=== PATIENT | male | born 1970 | race Caucasian/White ===

== ENCOUNTER 2017-10-05 14:11 | Inpatient (IN) | payer BC ==
[~2017-10-05] VITALS: Ht 182.9 cm; Wt 64.0 kg
[2017-10-05] MEDS: ALBUTEROL SULFATE 2.5 MG/3 ML NEBU NEB ONE ×4 (14:48→17:23)
--- NOTE | 2017-10-05 14:50 | NUR ---
PT IS IN ROOM #2B. DR DILLON EVALUATED THE PT.
[2017-10-05] MEDS ORDERED: ALBUTEROL SULFATE 2.5 MG/3 ML NEBU ONE ×2 (14:59→17:20)
[2017-10-05 15:12] LABS: BASOPHILS % (AUTO) 0.2 % (0.0-2.0); EOSINOPHILS % (AUTO) 0.1 % (0.0-7.0); HEMATOCRIT 43.4 % (36.7-47.1); HEMOGLOBIN 14.5 g/dL (12.5-16.3); LYMPHOCYTES # (AUTO) 0.6 K/uL (20.0-40.0); LYMPHOCYTES % (AUTO) 16.5 % (20.5-51.5); MEAN CORPUSCULAR HEMOGLOBIN 33.2 uug (23.8-33.4); MEAN CORPUSCULAR HGB CONC 33 g/dL (32.5-36.3); MEAN CORPUSCULAR VOLUME 99.4 fL (73.0-96.2); MONOCYTES # (AUTO) 0.2 K/uL (2.0-10.0); MONOCYTES % (AUTO) 4.4 % (0.0-11.0); NEUTROPHILS % (AUTO) 78.8 % (38.5-71.5); PLATELET COUNT (AUTO) 134 K/uL (152-348); RED BLOOD CELL COUNT(AUTO) 4.37 MIL/uL (4.06-5.63); WHITE BLOOD COUNT (AUTO) 3.8 K/uL (3.6-10.2)
[2017-10-05 15:14] LABS: CREATININE 3.2 mg/dL (0.6-1.3); POTASSIUM 4.2 mmol/L (3.5-5.1)
[2017-10-05 15:26] LABS: BILIRUBIN,DIRECT 0.1 mg/dL (0.0-0.2); BILIRUBIN,TOTAL 0.3 mg/dL (0.2-1.0); TOTAL PROTEIN, SERUM 6.5 g/dL (6.4-8.2)
[2017-10-05] MEDS ORDERED: IV NORMAL SALINE 1000 ML BAG IV ONE (15:45)
[2017-10-05] MEDS ORDERED: LEVOFLOXACIN 500 MG/D5W 100ML PIGGYBACK IV ONE (15:45)
[2017-10-05] MEDS ORDERED: ONDANSETRON 4 MG/2 ML VIAL IV ONE (15:45)
[2017-10-05] MEDS ORDERED: PIPERACILLIN SODIUM/TAZOBACTAM 2.25 G in IV DEXTROSE 5% 50 ML IV ONE (15:45)
[2017-10-05] MEDS ORDERED: MORPHINE SULFATE 2 MG/1 ML DISP.SYRIN IV ONE (15:45)
--- NOTE | 2017-10-05 16:03 | NUR ---
C ODE SEPSIS WAS CALLED BY DR DILLON. CODE SEPSIS PROTOCOL STARTED.
[2017-10-05 16:09] LABS: BAND % (MANUAL) 29 % (0-10); LYMPHOCYTES % (MANUAL) 19 % (20-40); MONOCYTES % (MANUAL) 6 % (2-10); NEUTROPHILS % (MANUAL) 46 % (42-75)
[2017-10-05] MEDS ORDERED: PIPERACILLIN/TAZOBACTAM/D5W 50 ML ONE (16:29)
[2017-10-05] MEDS ORDERED: LEVOFLOXACIN 500 MG/D5W 100 ML ONE (16:30)
[2017-10-05] MEDS ORDERED: ONDANSETRON 4 MG/2 ML VIAL ONE (16:31)
[2017-10-05] MEDS ORDERED: MORPHINE SULFATE 4 MG/1 ML DISP.SYRIN ONE (16:31)
[2017-10-05] MEDS ORDERED: VANCOMYCIN IV 1,000 MG in IV DEXTROSE 5% 250 ML IV ONE (16:45)
[2017-10-05] MEDS ORDERED: LORAZEPAM 2 MG/1 ML VIAL IV ONE ×2 (17:45)
[2017-10-05] MEDS ORDERED: LORAZEPAM 2 MG/1 ML VIAL ONE ×2 (18:10→23:35)
[2017-10-05] MEDS ORDERED: VANCOMYCIN IV 200 ML ONE (18:16)
--- NOTE | 2017-10-05 19:14 | NUR ---
REPORT GIVEN TO CONTRACTING MANAGER RN. PT IS RESTING IN BED COMFORTABLY. PT'S AT THE BEDSIDE.
--- NOTE | 2017-10-05 19:39 | NUR ---
REPORT TAKEN FROM PEDRO LUIS SANTANA, ASSUMING CARE AT THIS TIME
--- NOTE | 2017-10-05 19:48 | NUR ---
REPORT GIVEN TO ESTHER REYES
[2017-10-05 20:45] VITALS: BP 112/75
[2017-10-05 21:50] VITALS: BP 113/65
[2017-10-05 23:00] VITALS: BP 116/75
[2017-10-05] MEDS ORDERED: MORPHINE SULFATE 2 MG/1 ML DISP.SYRIN IV PRN (23:00)
[2017-10-05] MEDS ORDERED: IPRATROPIUM BROMIDE 0.5 MG/2.5 ML NEBU NEB PRN (23:00)
[2017-10-05] MEDS ORDERED: ALBUTEROL SULFATE 2.5 MG/3 ML NEBU NEB PRN (23:00)
[2017-10-05] MEDS ORDERED: ONDANSETRON 4 MG/2 ML VIAL IV PRN (23:00)
[2017-10-05] MEDS: LEVOFLOXACIN 250MG /D5W 250 MG in PREMIXED 1 EACH IV SCH (23:00)
[2017-10-05] MEDS: LORAZEPAM 2 MG/1 ML VIAL IV PRN (23:20)
--- NOTE | 2017-10-05 23:50 | NUR ---
RECEIVED PATIENT TRANSFER FROM CCU TO ROOM 206,PATIENT ALERT, CONFUSED, RESTLESS,ON O2 10 L/M VIA SIMPLE MASK, PATIENT HAS FREQUENT PRODUCTIVE COUGH , AND TRY TO REMOVE O2 MASK,CLOSELY MONITOR,ST ON MONITOR,LOW GRAD FEVER, SENT INFLUENZA SWAB TO LAB.
[2017-10-06] VITALS: BP 102/77
[2017-10-06] MEDS: IV D5/ 0.9% NACL 1,000 ML IV PRN ×2 (00:48→16:17)
[2017-10-06] MEDS ORDERED: PIPERACILLIN/TAZO 2.25 GM VIAL ONE (01:01)
--- NOTE | 2017-10-06 01:26 | NUR ---
PATIENT COUGH AND DESATURATED ,BREATHING TREATMENT GIVEN BY Brenda
[2017-10-06] MEDS ORDERED: ALBUTEROL SULFATE 2.5 MG/3 ML NEBU ONE (01:32)
[2017-10-06] MEDS ORDERED: IPRATROPIUM BROMIDE 0.5 MG/2.5 ML NEBU ONE (01:32)
[2017-10-06] MEDS ORDERED: MORPHINE SULFATE 4 MG/1 ML DISP.SYRIN ONE (02:04)
[2017-10-06 04:00] VITALS: BP 103/67
[2017-10-06] MEDS: LORAZEPAM 2 MG/1 ML VIAL IV PRN ×4 (04:04→23:45)
[2017-10-06] MEDS: NICOTINE 21 MG/24HR PATCH TD SCH ×2 (04:05→09:15)
[2017-10-06] MEDS ORDERED: NICOTINE 21 MG/24HR PATCH TD ONE (04:17)
[2017-10-06] MEDS ORDERED: LORAZEPAM 2 MG/1 ML VIAL ONE (04:18)
[2017-10-06] MEDS: methylPREDNISolone SOD SUCC 40 MG/ML VIAL IV SCH ×3 (06:21→21:29)
[2017-10-06] MEDS: PIPERACILLIN/TAZOBACTAM/D5W 2.25 G in PREMIXED 1 EACH IV SCH ×2 (06:22→13:23)
[2017-10-06] MEDS ORDERED: methylPREDNISolone SOD SUCC 40 MG/ML VIAL ONE (06:29)
[2017-10-06 06:42] LABS: BILIRUBIN,TOTAL 0.3 mg/dL (0.2-1.0); CREATININE 1.7 mg/dL (0.6-1.3); MAGNESIUM 1.8 mg/dL (1.8-2.4); PHOSPHOROUS 3.3 mg/dL (2.5-4.9); POTASSIUM 3.9 mmol/L (3.5-5.1); TOTAL PROTEIN, SERUM 5.5 g/dL (6.4-8.2)
--- NOTE | 2017-10-06 06:53 | NUR ---
PATIENT SLEPT INTERMITTENTLY,REMAIN CONFUSED,RESTLESS, ATIVAN 1 MG IV ADMIN FOR AGITATION AT 0400,PATIENT CALM DOWN STILL KEEP PULLING OFF IV AND O2 MASK,PATIENT IS MOUTH BREATHER CAN NOT TOLERATE NASAL CANNULA O2,SR,ST ON MONITOR,PATIENT HAS GOOD URINE OUT PUT.SAFETY PRECAUTIONS.
[2017-10-06 08:18] LABS: BASOPHILS % (AUTO) 0.1 % (0.0-2.0); HEMOGLOBIN 12.9 g/dL (12.5-16.3); LYMPHOCYTES # (AUTO) 0.7 K/uL (20.0-40.0); LYMPHOCYTES % (AUTO) 13.3 % (20.5-51.5); MEAN CORPUSCULAR HGB CONC 34 g/dL (32.5-36.3); MEAN CORPUSCULAR VOLUME 99.6 fL (73.0-96.2); MONOCYTES # (AUTO) 0.3 K/uL (2.0-10.0); MONOCYTES % (AUTO) 5.5 % (0.0-11.0); NEUTROPHILS % (AUTO) 81.1 % (38.5-71.5); PLATELET COUNT (AUTO) 160 K/uL (152-348); RED BLOOD CELL COUNT(AUTO) 3.79 MIL/uL (4.06-5.63)
[2017-10-06 08:19] LABS: HEMATOCRIT 37.7 % (36.7-47.1)
--- NOTE | 2017-10-06 09:06 | NUR ---
Clinical pharmacy note-Vancomycin dosing per pharmacy Subjective: To start Vancomycin dosing on this patient for pneumonia Objective: BUN 36, Scr 1.7 WBC 5.0 Temp 100.7 Assessment/Plan: Patient had vancomycin 1gram in er last night at 1758. Will continue Vancomycin 1gram IV every 21 hrs(second dose today at 1400) and draw trough by 4th dose(not ordered yet) for expected trough around 15. Will monitor daily.
[2017-10-06] MEDS: FAMOTIDINE. 20 MG/2 ML VIAL IV SCH ×2 (09:14→21:00)
--- NOTE | 2017-10-06 10:09 | NUR ---
Patient received in bed, seemed a little agitated in the morning, trying many times to removed his oxygen mask. O2 sat 98% with high flow mask 10L, saturation decrease after 2 min without mask <90%. Sitter at the bedside for safety. Patient continue to become more agitated during the AM, at the bedside, verbalized that notified me that patient gets seizures if he does not get his Ativan on time due to withdrawals. Ativan was administered as order. Will continue monitoring.
[2017-10-06 10:39] LABS: THYROID STIMULATING HORMONE 0.257 mIU/mL (0.358-3.740)
[2017-10-06 13:05] LABS: BAND % (MANUAL) 12 % (0-10); BASOPHILS % (MANUAL) 1 % (0-2); LYMPHOCYTES % (MANUAL) 12 % (20-40); METAMYELOCYTES % 2 % (0-1); MONOCYTES % (MANUAL) 6 % (2-10); NEUTROPHILS % (MANUAL) 67 % (42-75)
[2017-10-06] MEDS ORDERED: VANCOMYCIN IV 1 G in PREMIXED 0 EACH IV SCH (14:00)
[2017-10-06 14:13] VITALS: BP 104/72
--- NOTE | 2017-10-06 18:17 | NUR ---
PATIENT BEEN IN BED SLEEPING INTERMITTENTLY. NO SS OF DISTRESS NOTED. STILL DISORIENTED, AND HARD TO UNDERSTAND. MEDICATIONS WERE ADMINISTERED ORDERED. SITTER 1:1 FOR SAFETY. NC 5L AT THIS MOMENT SATURATING >94%. LATEST TEMP 100.3, COOLING MEASURES WERE DONE. SAFETY AND COMFORT PROVIDED DURING MY SHIFT. WILL CONTINUE MONITORING.
[2017-10-06 18:21] VITALS: BP 104/72
[2017-10-06 19:00] VITALS: BP 118/83
[2017-10-06] MEDS: MULTIVITAMINS,THERAPEUTIC TABLET PO SCH (20:00)
[2017-10-06] MEDS: FOLIC ACID 1 MG TABLET PO SCH (20:00)
[2017-10-06] MEDS: PIPERACILLIN/TAZOBACTAM/D5W 50 ML IV SCH (20:00)
[2017-10-06] MEDS: THIAMINE HCL 100 MG TABLET PO SCH (20:00)
[2017-10-06] MEDS ORDERED: FOLIC ACID 1 MG TABLET ONE (21:13)
[2017-10-06] MEDS ORDERED: THIAMINE HCL 100 MG TABLET ONE (21:14)
[2017-10-06] MEDS ORDERED: MULTIVITAMINS,THERAPEUTIC TABLET ONE (21:14)
[2017-10-06] MEDS: LEVOFLOXACIN 250MG /D5W 250 MG in PREMIXED 1 EACH IV SCH (22:12)
[2017-10-07] VITALS: BP 127/86
[2017-10-07 00:01] VITALS: BP 127/86
[2017-10-07] MEDS: PIPERACILLIN/TAZOBACTAM/D5W 50 ML IV SCH ×4 (02:00→20:37)
[2017-10-07] MEDS: IV D5/ 0.9% NACL 1,000 ML IV PRN (02:30)
[2017-10-07 04:00] VITALS: BP 128/77
[2017-10-07] MEDS: methylPREDNISolone SOD SUCC 40 MG/ML VIAL IV SCH ×3 (06:00→21:22)
[2017-10-07 07:04] LABS: BASOPHILS % (AUTO) 0.1 % (0.0-2.0); EOSINOPHILS % (AUTO) 0.1 % (0.0-7.0); HEMATOCRIT 39.2 % (36.7-47.1); HEMOGLOBIN 13.5 g/dL (12.5-16.3); LYMPHOCYTES # (AUTO) 0.7 K/uL (20.0-40.0); LYMPHOCYTES % (AUTO) 8.4 % (20.5-51.5); MEAN CORPUSCULAR HEMOGLOBIN 34.1 uug (23.8-33.4); MEAN CORPUSCULAR HGB CONC 34 g/dL (32.5-36.3); MEAN CORPUSCULAR VOLUME 99.4 fL (73.0-96.2); MONOCYTES # (AUTO) 0.9 K/uL (2.0-10.0); MONOCYTES % (AUTO) 10.9 % (0.0-11.0); NEUTROPHILS # (AUTO) 6.5 K/uL (1.8-8.9); NEUTROPHILS % (AUTO) 80.5 % (38.5-71.5); PLATELET COUNT (AUTO) 215 K/uL (152-348); RED BLOOD CELL COUNT(AUTO) 3.95 MIL/uL (4.06-5.63); WHITE BLOOD COUNT (AUTO) 8.1 K/uL (3.6-10.2)
--- NOTE | 2017-10-07 07:47 | NUR ---
PT RESTING IN BED AT THIS TIME, IN NO ACUTE DISTRESS, IV INTACT AND PATENT. 1:1 SITTER IN ROOM, NO NEEDS AT THIS TIME WILL CONTINUE TO MONITOR
[2017-10-07 07:57] LABS: BILIRUBIN,TOTAL 0.3 mg/dL (0.2-1.0); CREATININE 1.2 mg/dL (0.6-1.3); PHOSPHOROUS 2.3 mg/dL (2.5-4.9); POTASSIUM 3.8 mmol/L (3.5-5.1); TOTAL PROTEIN, SERUM 5.9 g/dL (6.4-8.2)
[2017-10-07 08:45] LABS: MAGNESIUM 2.4 mg/dL (1.8-2.4)
[2017-10-07] MEDS: MULTIVITAMINS,THERAPEUTIC TABLET PO SCH (09:03)
[2017-10-07] MEDS: NICOTINE 21 MG/24HR PATCH TD SCH (09:03)
[2017-10-07] MEDS: FOLIC ACID 1 MG TABLET PO SCH (09:03)
[2017-10-07] MEDS: THIAMINE HCL 100 MG TABLET PO SCH (09:03)
[2017-10-07] MEDS: FAMOTIDINE. 20 MG/2 ML VIAL IV SCH (09:03)
[2017-10-07 09:14] LABS: ABG BASE EXCESS -0.1 mmol/L; ABG HCO3 24.7 mmol/L; ABG PH 7.398 (7.350-7.450); ABG PO2 68.3 mmHg (75.0-100.0); ABG SITE RIGHT RADIAL; ABG TOTAL HEMOGLOBIN 14.1 G/dL (13.5-18.0); COHb 1.5 % (0.5-1.5); MetHb 0.3 % (0.0-1.5); O2Hb 91.7 % (94.0-97.0); VENT MODE Nasal Cannula
[2017-10-07 09:29] LABS: BAND % (MANUAL) 8 % (0-10); LYMPHOCYTES % (MANUAL) 11 % (20-40); METAMYELOCYTES % 2 % (0-1); MONOCYTES % (MANUAL) 9 % (2-10); NEUTROPHILS % (MANUAL) 70 % (42-75)
[2017-10-07] MEDS: LORAZEPAM 2 MG/1 ML VIAL IV PRN ×3 (09:56→17:48)
[2017-10-07] MEDS: VANCOMYCIN IV 1 G in PREMIXED 0 EACH IV SCH (09:56)
--- NOTE | 2017-10-07 11:06 | NUR ---
Clinical pharmacy note-Vancomycin dosing per pharmacy Subjective: To continue Vancomycin dosing on this patient for pneumonia Objective: BUN 31 , Scr 1.2 WBC 8.1 Temp 99 CXR + Assessment/Plan: Since srcr has , will change vanco from 1gram IV every 21 hrs to 1gm IVPB q15h for predicted vanco trough level of 17 mcg/ml at steady state. 1st dose is due today at 0900. Plan to draw vanco trough by 4th dose (not ordered yet). Will monitor renal function & adjust the dose if needed Will monitor daily.
[2017-10-07 12:37] VITALS: BP 146/97
[2017-10-07] MEDS: IPRATROPIUM BROMIDE 0.5 MG/2.5 ML NEBU NEB SCH ×3 (14:48→19:43)
[2017-10-07] MEDS: ALBUTEROL SULFATE 2.5 MG/3 ML NEBU NEB SCH ×3 (14:48→19:43)
[2017-10-07 16:00] VITALS: BP 139/86
[2017-10-07] MEDS ORDERED: NEUTRA PHOS PACKET PO ONE (16:00)
[2017-10-07] MEDS: ACETAMINOPHEN 325 MG TABLET PO PRN (16:51)
[2017-10-07 19:00] VITALS: BP 140/80
[2017-10-07 19:13] LABS: PRE ALBUMIN 7.6 MG/DL (18.0-35.7)
[2017-10-07] MEDS: FAMOTIDINE 20 MG TABLET PO SCH (20:38)
[2017-10-07] MEDS: LEVOFLOXACIN 250MG /D5W 250 MG in PREMIXED 1 EACH IV SCH (23:06)
[2017-10-08] VITALS: BP 145/85
[2017-10-08] MEDS: VANCOMYCIN IV 1 G in PREMIXED 0 EACH IV SCH ×2 (00:46→15:48)
[2017-10-08] MEDS: IV D5/ 0.9% NACL 1,000 ML IV PRN (01:11)
[2017-10-08 03:45] VITALS: BP 139/80
[2017-10-08] MEDS: MORPHINE SULFATE 4 MG/1 ML DISP.SYRIN IV PRN ×3 (03:54→17:05)
[2017-10-08] MEDS: PIPERACILLIN/TAZOBACTAM/D5W 50 ML IV SCH ×4 (03:55→21:24)
[2017-10-08 04:00] VITALS: BP 136/79
[2017-10-08] MEDS: methylPREDNISolone SOD SUCC 40 MG/ML VIAL IV SCH ×3 (06:21→21:25)
[2017-10-08 06:48] LABS: BASOPHILS % (AUTO) 0.2 % (0.0-2.0); HEMATOCRIT 37.7 % (36.7-47.1); HEMOGLOBIN 12.7 g/dL (12.5-16.3); LYMPHOCYTES # (AUTO) 0.9 K/uL (20.0-40.0); LYMPHOCYTES % (AUTO) 10.4 % (20.5-51.5); MEAN CORPUSCULAR HEMOGLOBIN 33.5 uug (23.8-33.4); MEAN CORPUSCULAR HGB CONC 34 g/dL (32.5-36.3); MEAN CORPUSCULAR VOLUME 99.4 fL (73.0-96.2); MONOCYTES # (AUTO) 0.8 K/uL (2.0-10.0); MONOCYTES % (AUTO) 9.9 % (0.0-11.0); NEUTROPHILS # (AUTO) 6.7 K/uL (1.8-8.9); NEUTROPHILS % (AUTO) 79.5 % (38.5-71.5); PLATELET COUNT (AUTO) 228 K/uL (152-348); RED BLOOD CELL COUNT(AUTO) 3.79 MIL/uL (4.06-5.63); WHITE BLOOD COUNT (AUTO) 8.4 K/uL (3.6-10.2)
[2017-10-08 07:16] LABS: BILIRUBIN,TOTAL 0.3 mg/dL (0.2-1.0); CREATININE 1.1 mg/dL (0.6-1.3); MAGNESIUM 2.2 mg/dL (1.8-2.4); PHOSPHOROUS 3.4 mg/dL (2.5-4.9); TOTAL PROTEIN, SERUM 5.3 g/dL (6.4-8.2)
[2017-10-08] MEDS: ALBUTEROL SULFATE 2.5 MG/3 ML NEBU NEB SCH ×4 (07:34→19:54)
[2017-10-08] MEDS: IPRATROPIUM BROMIDE 0.5 MG/2.5 ML NEBU NEB SCH ×4 (07:34→19:55)
--- NOTE | 2017-10-08 08:00 | NUR ---
resting in bed, still sleepy but arouses easily when name is called and touched, tele SB 50's, on 4l/nc 02, with sat at 95%, on continuous pulse oximetry, on 1:1 sitter, safety measures maintained, no distress noted, call light within reach
[2017-10-08] MEDS: MULTIVITAMINS,THERAPEUTIC TABLET PO SCH (08:18)
[2017-10-08] MEDS: NICOTINE 21 MG/24HR PATCH TD SCH (08:18)
[2017-10-08] MEDS: THIAMINE HCL 100 MG TABLET PO SCH (08:18)
[2017-10-08] MEDS: FAMOTIDINE 20 MG TABLET PO SCH ×2 (08:18→21:25)
[2017-10-08] MEDS: FOLIC ACID 1 MG TABLET PO SCH (08:18)
--- NOTE | 2017-10-08 09:15 | NUR ---
here, spoke to pt- awake, taking liquids fairly, c/o pain generalized pain, and also abdomen, medicated with Morphine 2mg iv as ordered prn, will monitor closely, wanted to speak to MD- informed EVENT ATTENDANT but will call her- number given
[2017-10-08 10:10] LABS: LYMPHOCYTES % (MANUAL) 11 % (20-40); MONOCYTES % (MANUAL) 1 % (2-10); NEUTROPHILS % (MANUAL) 88 % (42-75)
--- NOTE | 2017-10-08 12:00 | NUR ---
awake, taking fluids well and voiding qs
[2017-10-08 12:25] VITALS: BP 138/77
--- NOTE | 2017-10-08 14:39 | NUR ---
Clinical pharmacy note-Vancomycin dosing per pharmacy Subjective: To continue Vancomycin dosing on this patient for pneumonia Objective: BUN 31 , Scr 1.1 WBC 8.4 Temp 99.6 CXR + Assessment/Plan: Since renal function is stable, will continue vanco 1gm IVPB q15h for predicted vanco trough level of 17 mcg/ml at steady state. 3rd dose is due today at 1500. Plan to draw vanco trough by 4th dose (ordered for tomorrow at 0530). Will monitor renal function & adjust the dose if needed Will monitor daily.
--- NOTE | 2017-10-08 16:30 | NUR ---
seen by Charlene Worthy [employer] and spoke to with orders-carried out, no distress noted,
[2017-10-08 17:53] VITALS: BP 160/78
--- NOTE | 2017-10-08 18:44 | NUR ---
resting now, no distress noted, family at bedside, IS done x 7 times at 1500ml. more awake, medicated x 2 for generalized pain and abdominal pain with relief, seen by SANDRA Saunders NP and Dr Govea with orders, call light within reach
[2017-10-08] MEDS: LACTOBACILLUS RHAMNOSUS GG 1 EACH CAPSULE PO SCH (21:25)
[2017-10-08] MEDS: LEVOFLOXACIN 250MG /D5W 250 MG in PREMIXED 1 EACH IV SCH (22:41)
[2017-10-09 02:10] LABS: TRIIODOTHYRONINE, FREE 1.3 pg/mL (2.0-4.4)
[2017-10-09] MEDS: PIPERACILLIN/TAZOBACTAM/D5W 50 ML IV SCH ×4 (02:16→20:54)
[2017-10-09] MEDS: MORPHINE SULFATE 4 MG/1 ML DISP.SYRIN IV PRN ×2 (02:26→08:08)
[2017-10-09 04:00] VITALS: BP 167/103
[2017-10-09] MEDS: IV D5/ 0.9% NACL 1,000 ML IV PRN (06:30)
[2017-10-09] MEDS: IPRATROPIUM BROMIDE 0.5 MG/2.5 ML NEBU NEB SCH ×5 (07:07→19:40)
[2017-10-09] MEDS: ALBUTEROL SULFATE 2.5 MG/3 ML NEBU NEB SCH ×5 (07:08→19:40)
[2017-10-09 07:56] VITALS: BP 166/94
--- NOTE | 2017-10-09 08:00 | NUR ---
more awake today, on4l/nc 02 with at of 96%, on continous pulse oximetry, c/o generalized pain- medicated with Morphine 2mg iv as prn, tele SR 65, incentive spirometry encouraged, 1:1 sitter in the room, sfety measures maintained
[2017-10-09] MEDS: FOLIC ACID 1 MG TABLET PO SCH (08:12)
[2017-10-09] MEDS: LACTOBACILLUS RHAMNOSUS GG 1 EACH CAPSULE PO SCH ×2 (08:12→20:54)
[2017-10-09] MEDS: methylPREDNISolone SOD SUCC 40 MG/ML VIAL IV SCH ×2 (08:12→20:54)
[2017-10-09] MEDS: MULTIVITAMINS,THERAPEUTIC TABLET PO SCH (08:12)
[2017-10-09] MEDS: THIAMINE HCL 100 MG TABLET PO SCH (08:12)
[2017-10-09] MEDS: FAMOTIDINE 20 MG TABLET PO SCH (08:12)
[2017-10-09] MEDS: NICOTINE 21 MG/24HR PATCH TD SCH (08:13)
--- NOTE | 2017-10-09 09:30 | NUR ---
am care done by [employer], ambulated to BR and up in chair after, noted HR up in the 90-110 during this time, 02 at 4l/nc
--- NOTE | 2017-10-09 10:30 | NUR ---
sat 97% on 4l/nc- lowered 02 at 3l/nc, still coughing of whitish phlegm, no vomiting noted
--- NOTE | 2017-10-09 11:00 | NUR ---
here and upset- Dr Kong spoke to her at length with orders, RA sat was 88%- placed back to 3l/nc
[2017-10-09] MEDS ORDERED: FAMOTIDINE. 20 MG/2 ML VIAL IV SCH (11:30)
[2017-10-09 11:37] LABS: ABG BASE EXCESS 2.6 mmol/L; ABG HCO3 24.5 mmol/L; ABG PCO2 29.9 mmHg (35.0-45.0); ABG PH 7.531 (7.350-7.450); ABG SITE RIGHT RADIAL; ABG TOTAL HEMOGLOBIN 13.6 G/dL (13.5-18.0); COHb 1.3 % (0.5-1.5); MetHb 0.1 % (0.0-1.5); O2Hb 92.9 % (94.0-97.0); VENT MODE ROOM AIR
--- NOTE | 2017-10-09 11:51 | NUR ---
CLINICAL PHARMACY NOTE:VANCOMYCIN DOSING Request to restart vancomycin on 47/y Male 6' 136 lbs for pneumonia Temp 98.9 BUN 31 Scr 1.1 WBC 8.4 also on Zosyn and Levaquin Start vancomycin 1GM IVPB q15h estimate trough 15. Will order trough level prior to 4th dose. Will continue to monitor
[2017-10-09 11:57] VITALS: BP 141/100
[2017-10-09] MEDS ORDERED: METOCLOPRAMIDE HCL 10 MG/2 ML VIAL IV PRN (12:00)
[2017-10-09] MEDS ORDERED: ONDANSETRON 4 MG/2 ML VIAL IV PRN (12:00)
[2017-10-09] MEDS ORDERED: THIAMINE HCL INJ 100 MG in IV DEXTROSE 5% 50 ML IV SCH (12:15)
[2017-10-09] MEDS: VANCOMYCIN IV 1 G in PREMIXED 0 EACH IV SCH (12:36)
--- NOTE | 2017-10-09 13:00 | NUR ---
downgraded to med/surg by Dr Vale
[2017-10-09 13:03] LABS: BASOPHILS % (AUTO) 0.1 % (0.0-2.0); HEMATOCRIT 38.8 % (36.7-47.1); HEMOGLOBIN 13.3 g/dL (12.5-16.3); LYMPHOCYTES # (AUTO) 0.8 K/uL (20.0-40.0); LYMPHOCYTES % (AUTO) 6.3 % (20.5-51.5); MEAN CORPUSCULAR HEMOGLOBIN 33.5 uug (23.8-33.4); MEAN CORPUSCULAR HGB CONC 34 g/dL (32.5-36.3); MEAN CORPUSCULAR VOLUME 97.8 fL (73.0-96.2); MONOCYTES # (AUTO) 0.9 K/uL (2.0-10.0); MONOCYTES % (AUTO) 7.5 % (0.0-11.0); NEUTROPHILS # (AUTO) 10.5 K/uL (1.8-8.9); NEUTROPHILS % (AUTO) 86.1 % (38.5-71.5); PLATELET COUNT (AUTO) 334 K/uL (152-348); RED BLOOD CELL COUNT(AUTO) 3.96 MIL/uL (4.06-5.63); WHITE BLOOD COUNT (AUTO) 12.2 K/uL (3.6-10.2)
[2017-10-09 13:20] LABS: BILIRUBIN,TOTAL 0.7 mg/dL (0.2-1.0); PHOSPHOROUS 3.3 mg/dL (2.5-4.9); POTASSIUM 3.3 mmol/L (3.5-5.1); TOTAL PROTEIN, SERUM 5.9 g/dL (6.4-8.2)
--- NOTE | 2017-10-09 13:25 | NUR ---
lactic acid 3.1- Dr Kong informed- pt on already IV abx- no order given, will continue to monitor closely, no fever
[2017-10-09 13:27] LABS: LYMPHOCYTES % (MANUAL) 8 % (20-40); MONOCYTES % (MANUAL) 7 % (2-10); NEUTROPHILS % (MANUAL) 85 % (42-75)
--- NOTE | 2017-10-09 14:32 | NUR ---
medicated for c/o nausea- no vomiting noted, sitter at bedside, family here earlier
[2017-10-09 15:28] VITALS: BP 155/103
--- NOTE | 2017-10-09 15:37 | NUR ---
lactic acid- 3.9- dr Kong informed with orders- NS 1 Liter bolus given
[2017-10-09] MEDS ORDERED: IV NS 1000 ML 1,000 ML IV ONE (16:00)
[2017-10-09] MEDS ORDERED: IBUPROFEN 600 MG TABLET PO PRN (16:45)
[2017-10-09] MEDS ORDERED: ONDANSETRON ODT 4 MG TAB.RAPDIS SL PRN (16:45)
[2017-10-09] MEDS ORDERED: HYDROXYZINE PAMOATE 25 MG CAPSULE PO PRN (16:45)
[2017-10-09] MEDS ORDERED: MIRALAX 17 GM POWD.PACK PO PRN (16:45)
[2017-10-09] MEDS ORDERED: LORAZEPAM 1 MG TABLET PO PRN ×3 (16:45→18:00)
[2017-10-09] MEDS ORDERED: METHOCARBAMOL 750 MG TABLET PO PRN (16:45)
[2017-10-09] MEDS ORDERED: KETOROLAC TROMETHAMINE 30 MG INJ IM PRN (16:45)
[2017-10-09] MEDS ORDERED: MAG HYDROX/AL HYDROX/SIMETH 30 ML LIQUID UDC PO PRN (16:45)
[2017-10-09] MEDS ORDERED: CLONIDINE HCL 0.1 MG TABLET PO PRN (16:45)
[2017-10-09] MEDS ORDERED: DICYCLOMINE HCL 20 MG TABLET PO PRN (16:45)
[2017-10-09] MEDS ORDERED: NICOTINE POLACRILEX 4 MG GUM-PK OF TEN BC PRN (16:45)
--- NOTE | 2017-10-09 17:00 | NUR ---
seen by Dr Villalobos with orders
[2017-10-09] MEDS ORDERED: BUPRENORPHINE HCL 2 MG TAB.SUBL SL SCH (17:30)
[2017-10-09] MEDS ORDERED: LORAZEPAM 1 MG TABLET PO SCH (17:30)
[2017-10-09] MEDS ORDERED: MORPHINE SULFATE 2 MG/1 ML DISP.SYRIN IV PRN (17:30)
[2017-10-09] MEDS ORDERED: MORPHINE SULFATE 4 MG/1 ML DISP.SYRIN IV PRN (18:00)
--- NOTE | 2017-10-09 18:00 | NUR ---
sitting up in bed, visitor in the room talking to him, calm, no s/s of withdrawal noted, on 3l/nc 02, has cough productive of whitish secretions, all needs attended and met, sitter in the room, safety measures maintained
[2017-10-09 20:00] VITALS: BP 155/103
[2017-10-09] MEDS: FAMOTIDINE. 20 MG/2 ML VIAL IV SCH (20:54)
[2017-10-09] MEDS: GABAPENTIN 300 MG CAPSULE PO SCH (20:54)
[2017-10-09] MEDS: diphenhydrAMINE 50 MG CAPSULE PO PRN (20:57)
[2017-10-09] MEDS: ACETAMINOPHEN 325 MG TABLET PO PRN (20:58)
[2017-10-09] MEDS: LEVOFLOXACIN 250MG /D5W 250 MG in PREMIXED 1 EACH IV SCH (23:19)
[2017-10-10] MEDS: PIPERACILLIN/TAZOBACTAM/D5W 50 ML IV SCH ×2 (01:31→07:39)
[2017-10-10] MEDS: IV D5/ 0.9% NACL 1,000 ML IV PRN ×2 (01:32→21:50)
[2017-10-10 02:14] LABS: *AMPHETAMINE, URINE NEGATIVE (NEGATIVE); *BARBITURATE, URINE NEGATIVE (NEGATIVE); *CANNABINOID, URINE NEGATIVE (NEGATIVE); *COCCAINE, URINE NEGATIVE (NEGATIVE); *OPIATE, URINE POSITIVE (NEGATIVE); *PHENCYCLIDINE SCREEN,URINE NEGATIVE (NEGATIVE)
[2017-10-10] MEDS: VANCOMYCIN IV 1 G in PREMIXED 0 EACH IV SCH (02:56)
[2017-10-10 04:00] VITALS: BP 133/94
--- NOTE | 2017-10-10 06:18 | NUR ---
Patient awake and alert. Sitter at bedside, on 02@3LPM via NC and continuous pulse oxygen monitoring. No distress noted throughout the night.
[2017-10-10] MEDS: ALBUTEROL SULFATE 2.5 MG/3 ML NEBU NEB SCH ×4 (07:16→19:27)
[2017-10-10] MEDS: IPRATROPIUM BROMIDE 0.5 MG/2.5 ML NEBU NEB SCH ×4 (07:17→19:27)
[2017-10-10 07:53] VITALS: BP 130/91
[2017-10-10] MEDS: MULTIVITAMINS,THERAPEUTIC TABLET PO SCH (08:04)
[2017-10-10] MEDS: LACTOBACILLUS RHAMNOSUS GG 1 EACH CAPSULE PO SCH ×2 (08:04→21:08)
[2017-10-10] MEDS: FOLIC ACID 1 MG TABLET PO SCH (08:05)
[2017-10-10] MEDS: THIAMINE HCL 100 MG TABLET PO SCH (08:05)
[2017-10-10] MEDS: FAMOTIDINE. 20 MG/2 ML VIAL IV SCH ×2 (08:05→21:08)
[2017-10-10] MEDS: GABAPENTIN 300 MG CAPSULE PO SCH ×3 (08:05→21:08)
[2017-10-10 08:06] LABS: TRIIODOTHYRONINE, FREE 1.4 pg/mL (2.0-4.4)
[2017-10-10] MEDS: methylPREDNISolone SOD SUCC 40 MG/ML VIAL IV SCH ×2 (08:13→21:21)
[2017-10-10] MEDS: NICOTINE 21 MG/24HR PATCH TD SCH (08:16)
[2017-10-10 08:38] LABS: BASOPHILS % (AUTO) 0.1 % (0.0-2.0); HEMATOCRIT 36.3 % (36.7-47.1); HEMOGLOBIN 12.4 g/dL (12.5-16.3); LYMPHOCYTES # (AUTO) 0.9 K/uL (20.0-40.0); LYMPHOCYTES % (AUTO) 6.9 % (20.5-51.5); MEAN CORPUSCULAR HEMOGLOBIN 33.2 uug (23.8-33.4); MEAN CORPUSCULAR HGB CONC 34 g/dL (32.5-36.3); MEAN CORPUSCULAR VOLUME 97.1 fL (73.0-96.2); MONOCYTES # (AUTO) 1.3 K/uL (2.0-10.0); MONOCYTES % (AUTO) 9.2 % (0.0-11.0); NEUTROPHILS # (AUTO) 11.5 K/uL (1.8-8.9); NEUTROPHILS % (AUTO) 83.8 % (38.5-71.5); PLATELET COUNT (AUTO) 354 K/uL (152-348); RED BLOOD CELL COUNT(AUTO) 3.74 MIL/uL (4.06-5.63); WHITE BLOOD COUNT (AUTO) 13.7 K/uL (3.6-10.2)
[2017-10-10 08:44] LABS: MAGNESIUM 1.9 mg/dL (1.8-2.4); PHOSPHOROUS 3.5 mg/dL (2.5-4.9); POTASSIUM 3.5 mmol/L (3.5-5.1)
[2017-10-10] MEDS ORDERED: THIAMINE HCL INJ 100 MG in IV DEXTROSE 5% 50 ML IV SCH (09:00)
[2017-10-10] MEDS ORDERED: TUBERCULIN,PURIF.PROT.DERIV. 5 TU/0.1 ML TEST ID ONE (09:00)
[2017-10-10] MEDS ORDERED: THIAMINE HCL 200 MG/2 ML VIAL IV SCH (09:00)
[2017-10-10] MEDS ORDERED: BUPRENORPHINE HCL 2 MG TAB.SUBL SL SCH (09:00)
[2017-10-10] MEDS ORDERED: LORAZEPAM 1 MG TABLET PO SCH (09:00)
[2017-10-10 11:39] VITALS: BP 136/92
--- NOTE | 2017-10-10 12:32 | NUR ---
CLINICAL PHARMACY NOTE:VANCOMYCIN DOSING Restarted vancomycin on 47/y Male 6' 136 lbs for pneumonia Temp 98.3 BUN 27 Scr 1.0 WBC 13.7 Will continue 1GM IVPB q15h estimate trough 15. 3rd dose tonight at 1800. Trough ordered before 4th scheduled dose (due 10/11 at 0830). Will check trough in am and adjust as needed. Will follow
[2017-10-10 15:08] VITALS: BP 135/94
--- NOTE | 2017-10-10 19:41 | NUR ---
Patient been in bed resting, no s/s of distress noted during my shift. Continues o2 sat monitoring, 3L via NC saturating at 98%. O2 sat assessed without oxygen, it dropped to 90% MD Aquino aware. 1L oxygen maintain at the moment with a o2 sat of 95%. Per Any, CERTIFIED DRUG COUNSELOR report patient o2 sat usually drops to 88% during activity. Patient continue having poor appetite, encourage family to bring comfort food. MD Sotomayor ok to change his diet to a solid. Safety and comfort provided during my shift by staff. Report given to ESTHER Davis.
[2017-10-10 20:02] LABS: PRE ALBUMIN 19.2 MG/DL (18.0-35.7)
[2017-10-10] MEDS: diphenhydrAMINE 50 MG CAPSULE PO PRN (21:08)
[2017-10-10 21:23] VITALS: BP 135/90
[2017-10-10] MEDS: LEVOFLOXACIN 250MG /D5W 250 MG in PREMIXED 1 EACH IV SCH (22:00)
[2017-10-11 06:13] VITALS: BP 112/82
--- NOTE | 2017-10-11 06:18 | NUR ---
Patient is awake in bed at this time. Slept through most of the night. No signs of distress noted. Denies pain or SOB. Currently on oxygen at 2LPM via NC with continuous pulse oximetry monitoring maintaining at 95% and above. Patient was calm and quiet, no episode of impulsive behaviors throughout the night. All needs attended to. Bed locked and in low position with call light within reach.
[2017-10-11 07:29] LABS: BASOPHILS % (AUTO) 0.1 % (0.0-2.0); HEMATOCRIT 36.4 % (36.7-47.1); HEMOGLOBIN 12.4 g/dL (12.5-16.3); LYMPHOCYTES # (AUTO) 0.9 K/uL (20.0-40.0); LYMPHOCYTES % (AUTO) 5.6 % (20.5-51.5); MEAN CORPUSCULAR HEMOGLOBIN 33.6 uug (23.8-33.4); MEAN CORPUSCULAR HGB CONC 34 g/dL (32.5-36.3); MEAN CORPUSCULAR VOLUME 98.8 fL (73.0-96.2); MONOCYTES # (AUTO) 0.8 K/uL (2.0-10.0); MONOCYTES % (AUTO) 4.8 % (0.0-11.0); NEUTROPHILS # (AUTO) 14.1 K/uL (1.8-8.9); NEUTROPHILS % (AUTO) 89.5 % (38.5-71.5); PLATELET COUNT (AUTO) 402 K/uL (152-348); RED BLOOD CELL COUNT(AUTO) 3.68 MIL/uL (4.06-5.63); WHITE BLOOD COUNT (AUTO) 15.7 K/uL (3.6-10.2)
[2017-10-11 07:41] LABS: CREATININE 0.9 mg/dL (0.6-1.3); PHOSPHOROUS 4.3 mg/dL (2.5-4.9)
[2017-10-11] MEDS: IPRATROPIUM BROMIDE 0.5 MG/2.5 ML NEBU NEB SCH ×2 (08:00→11:26)
[2017-10-11] MEDS: ALBUTEROL SULFATE 2.5 MG/3 ML NEBU NEB SCH ×2 (08:00→11:26)
[2017-10-11] MEDS: FOLIC ACID 1 MG TABLET PO SCH (08:38)
[2017-10-11] MEDS: LACTOBACILLUS RHAMNOSUS GG 1 EACH CAPSULE PO SCH (08:38)
[2017-10-11] MEDS: THIAMINE HCL 100 MG TABLET PO SCH (08:38)
[2017-10-11] MEDS: MULTIVITAMINS,THERAPEUTIC TABLET PO SCH (08:38)
[2017-10-11] MEDS: NICOTINE 21 MG/24HR PATCH TD SCH (08:39)
[2017-10-11] MEDS: FAMOTIDINE. 20 MG/2 ML VIAL IV SCH (08:39)
[2017-10-11] MEDS: GABAPENTIN 300 MG CAPSULE PO SCH ×2 (08:39→14:21)
[2017-10-11 08:48] VITALS: BP 126/90
[2017-10-11] MEDS: IV D5/ 0.9% NACL 1,000 ML IV PRN (08:50)
[2017-10-11] MEDS ORDERED: LORAZEPAM 1 MG TABLET PO SCH (09:00)
[2017-10-11] MEDS ORDERED: BUPRENORPHINE HCL 2 MG TAB.SUBL SL SCH (09:00)
[2017-10-11] MEDS: methylPREDNISolone SOD SUCC 40 MG/ML VIAL IV SCH (09:49)
[2017-10-11 11:55] VITALS: BP 133/59
[2017-10-11 12:07] LABS: BILIRUBIN,DIRECT 0.2 mg/dL (0.0-0.2); BILIRUBIN,TOTAL 0.6 mg/dL (0.2-1.0)
[2017-10-11 15:10] LABS: HEPATITIS B SURFACE AG Negative (Negative)
--- NOTE | 2017-10-11 16:53 | NUR ---
PATIENT BEEN DISCHARGE HOME IN SAFE AND STABLE CONDITION. NO S/S OF DISTRESS NOTED. O2 NC WAS REMOVED, PATIENT TOLERATED WELL BEING ON ROOM AIR. AN INCREASE OF APPETITE WAS NOTED. ID AND IV REMOVED. BELONGINGS WERE TAKEN. DISCHARGE INSTRUCTIONS WERE EXPLAINED AND COPY WAS PROVIDED, WELL PRESCRIPTIONS. SAFETY AND COMFORT PROVIDED BY STAFF.PATIENT WAS TAKEN SAFELY ON WHEELCHAIR TO HIS CAR BY VIVIAN PETERSEN ACCOMPANIED BY .
[2017-10-11] MEDS ORDERED: FAMOTIDINE 20 MG TABLET PO SCH (21:00)
[2017-10-12] MEDS ORDERED: BUPRENORPHINE HCL 2 MG TAB.SUBL SL SCH (09:00)
[2017-10-12] MEDS ORDERED: LORAZEPAM 1 MG TABLET PO SCH (09:00)
[2017-10-12 09:07] LABS: CRYPTOCOCCUS AB, SERUM Negative (Negative)
[2017-10-16] MEDS ORDERED: PANT40TA2 PO (20:34)
[2017-10-16] MEDS ORDERED: LACT1CAP57 PO (20:34)
[2017-10-16] MEDS ORDERED: DIPH50CA37 PO (20:34)
[2017-10-16] MEDS ORDERED: IBUP-1955 PO (20:34)
[2017-10-16] MEDS ORDERED: METH-406 PO (20:34)
[2017-10-16] MEDS ORDERED: DICY20TA28 PO (20:34)
[2017-10-16] MEDS ORDERED: LEVO750T21 PO (20:34)
[2017-10-16] MEDS ORDERED: LACT10SO7 PO (20:34)
[2017-10-16] MEDS ORDERED: GABA-534 PO (20:34)
[2017-11-06] MEDS ORDERED: THIAMINE HCL 100 MG TABLET PO SCH ×2 (20:00)
== END 2017-10-11 16:00 | disposition home or self-care (01) | DRG 871 ==
LOC: ER 14:11 → CCU 20:06 → DOU 10-06 → TELE-TD 10-06 → TELE 10-06 17:10 → MED 10-09 14:06
PROVIDERS: ADMIT Internal Medicine; ATTEND Internal Medicine
DX: A41.9 Sepsis, unspecified organism (principal); J18.9 Pneumonia, unspecified organism; J96.01 Acute respiratory failure with hypoxia; N17.0 Acute kidney failure with tubular necrosis; G92 Toxic encephalopathy; E87.4 Mixed disorder of acid-base balance; D69.6 Thrombocytopenia, unspecified; E86.0 Dehydration; F10.230 Alcohol dependence with withdrawal, uncomplicated; F13.230 Sedative, hypnotic or anxiolytic dependence with withdrawal, uncomplicated; F11.23 Opioid dependence with withdrawal; J44.0 Chronic obstructive pulmonary disease with (acute) lower respiratory infection; J84.10 Pulmonary fibrosis, unspecified; Z82.5 Family history of asthma and other chronic lower respiratory diseases; F17.210 Nicotine dependence, cigarettes, uncomplicated; Y90.9 Presence of alcohol in blood, level not specified; E87.6 Hypokalemia; G40.909 Epilepsy, unspecified, not intractable, without status epilepticus; G89.4 Chronic pain syndrome; E05.80 Other thyrotoxicosis without thyrotoxic crisis or storm
CPT/HCPCS: 36415; 36600; 70030-TC; 71010; 71045; 71250; 80307; 82378; 83605; 83735; 84100; 84443; 84481; 85025; 85610; 86580; 86592; 86705; 86803; 87040; 87070; 87086; 87328; 87340; 87400; 87806; 93005; 93307; 94640; A4663; G0480-TC; J1885; J1956; J2060; J2270; J2405; J2543; J2920; J3370; J3411; J3490; J3590; J7030; J7042; J7060; Q0163

== ENCOUNTER 2017-10-12 13:29 | Inpatient (IN) | payer BC, OTHER ==
[~2017-10-12] VITALS: Ht 182.9 cm; Wt 57.2 kg
[2017-10-12] MEDS ORDERED: CLONIDINE HCL 0.1 MG TABLET PO PRN (15:00)
[2017-10-12] MEDS ORDERED: MAGNESIUM HYDROXIDE 30 ML LIQUID UDC PO PRN (15:00)
[2017-10-12] MEDS ORDERED: BUPRENORPHINE HCL 2 MG TAB.SUBL SL PRN (15:00)
[2017-10-12] MEDS ORDERED: MIRALAX 17 GM POWD.PACK PO PRN (15:00)
[2017-10-12] MEDS ORDERED: ACETAMINOPHEN 325 MG TABLET PO PRN (15:00)
[2017-10-12] MEDS ORDERED: LORAZEPAM 2 MG/1 ML VIAL IM PRN (15:00)
[2017-10-12] MEDS ORDERED: ONDANSETRON 4 MG/2 ML VIAL IM PRN (15:00)
[2017-10-12] MEDS ORDERED: LOPERAMIDE HCL 2 MG CAPSULE PO PRN ×2 (15:00)
[2017-10-12] MEDS ORDERED: IPRATROPIUM BROMIDE 0.5 MG/2.5 ML NEBU NEB PRN (15:00)
[2017-10-12] MEDS ORDERED: diphenhydrAMINE 50 MG CAPSULE PO PRN (15:00)
[2017-10-12] MEDS ORDERED: IBUPROFEN 600 MG TABLET PO PRN (15:00)
[2017-10-12] MEDS ORDERED: LORAZEPAM 1 MG TABLET PO PRN (15:00)
[2017-10-12] MEDS ORDERED: ALBUTEROL SULFATE 2.5 MG/ 0.5 ML NEBU NEB PRN (15:00)
[2017-10-12] MEDS ORDERED: MAG HYDROX/AL HYDROX/SIMETH 30 ML LIQUID UDC PO PRN (15:00)
[2017-10-12] MEDS ORDERED: METHOCARBAMOL 750 MG TABLET PO PRN (15:00)
[2017-10-12] MEDS ORDERED: NICOTINE POLACRILEX 4 MG GUM-PK OF TEN BC PRN (15:00)
[2017-10-12 16:00] LABS: *AMPHETAMINE, URINE NEGATIVE (NEGATIVE); *BARBITURATE, URINE NEGATIVE (NEGATIVE); *CANNABINOID, URINE NEGATIVE (NEGATIVE); *COCCAINE, URINE NEGATIVE (NEGATIVE); *OPIATE, URINE POSITIVE (NEGATIVE); *PHENCYCLIDINE SCREEN,URINE NEGATIVE (NEGATIVE)
[2017-10-12 16:45] LABS: BASOPHILS % (AUTO) 0.2 % (0.0-2.0); EOSINOPHILS % (AUTO) 0.1 % (0.0-7.0); HEMATOCRIT 42.7 % (36.7-47.1); HEMOGLOBIN 14.7 g/dL (12.5-16.3); LYMPHOCYTES # (AUTO) 1.7 K/uL (20.0-40.0); MEAN CORPUSCULAR HEMOGLOBIN 33.4 uug (23.8-33.4); MEAN CORPUSCULAR HGB CONC 34 g/dL (32.5-36.3); MEAN CORPUSCULAR VOLUME 97.1 fL (73.0-96.2); MONOCYTES # (AUTO) 1.2 K/uL (2.0-10.0); MONOCYTES % (AUTO) 6.9 % (0.0-11.0); NEUTROPHILS % (AUTO) 82.8 % (38.5-71.5); PLATELET COUNT (AUTO) 502 K/uL (152-348); WHITE BLOOD COUNT (AUTO) 16.9 K/uL (3.6-10.2)
[2017-10-12 16:48] LABS: ETHANOL < 3 MG/DL (0-0)
[2017-10-12] MEDS: BUPRENORPHINE HCL 2 MG TAB.SUBL SL SCH ×2 (16:52→20:11)
[2017-10-12] MEDS: LORAZEPAM 1 MG TABLET PO SCH ×2 (16:52→20:11)
[2017-10-12 17:00] LABS: THYROID STIMULATING HORMONE 0.914 mIU/mL (0.358-3.740)
[2017-10-12] MEDS ORDERED: predniSONE 20 MG TABLET PO ONE (17:00)
[2017-10-12 17:04] LABS: ALANINE AMINOTRANSFERASE 49 U/L (16-63); ALKALINE PHOSPHATASE 94 U/L (50-136); ASPARTATE AMINOTRANSFERASE 28 U/L (15-37); BILIRUBIN,TOTAL 1.3 mg/dL (0.2-1.0); CARBON DIOXIDE 31 mmol/L (21-32); CHLORIDE 100 mmol/L (98-107); CREATININE 0.9 mg/dL (0.6-1.3); GLUCOSE 105 mg/dL (74-106); MAGNESIUM 2.1 mg/dL (1.8-2.4); POTASSIUM 4.3 mmol/L (3.5-5.1); UREA NITROGEN, BLOOD 24 mg/dL (7-18)
[2017-10-12] MEDS: DICYCLOMINE HCL 20 MG TABLET PO PRN (17:12)
[2017-10-12] MEDS: LEVOFLOXACIN 750 MG TABLET PO SCH (17:13)
[2017-10-12] MEDS: GABAPENTIN 300 MG CAPSULE PO SCH (20:11)
[2017-10-12 20:15] VITALS: BP 117/84
[2017-10-13 00:26] VITALS: BP 109/78
[2017-10-13] MEDS: LORAZEPAM 1 MG TABLET PO PRN ×3 (02:08→10:24)
[2017-10-13] MEDS ORDERED: LORAZEPAM 1 MG TABLET PO ONE ×2 (02:45→13:15)
[2017-10-13] MEDS ORDERED: QUETIAPINE FUMARATE 25 MG TABLET PO ONE ×2 (03:15→11:15)
[2017-10-13] MEDS ORDERED: QUETIAPINE FUMARATE 25 MG TABLET ONE (03:24)
[2017-10-13] MEDS ORDERED: OLANZAPINE 10 MG VIAL IM ONE ×2 (03:30→12:15)
[2017-10-13 04:20] VITALS: BP 116/81
[2017-10-13] MEDS: PANTOPRAZOLE SODIUM 40 MG TABLET.DR PO SCH (07:30)
[2017-10-13] MEDS ORDERED: PRED20TA PO ×2 (07:42→07:45)
[2017-10-13] MEDS ORDERED: PRED10TA PO (07:45)
[2017-10-13] MEDS ORDERED: LEVO500T2 PO (07:45)
[2017-10-13] MEDS ORDERED: FLUT1DIS28 IH (07:46)
[2017-10-13 08:00] VITALS: BP 124/77
[2017-10-13] MEDS ORDERED: predniSONE 20 MG TABLET PO SCH (08:00)
[2017-10-13] MEDS: LEVOFLOXACIN 750 MG TABLET PO SCH (08:14)
[2017-10-13] MEDS: LORAZEPAM 1 MG TABLET PO SCH ×3 (08:14→21:00)
[2017-10-13] MEDS: GABAPENTIN 300 MG CAPSULE PO SCH ×2 (08:14→21:00)
[2017-10-13] MEDS: BUPRENORPHINE HCL 2 MG TAB.SUBL SL SCH ×3 (08:15→21:00)
[2017-10-13] MEDS ORDERED: TUBERCULIN,PURIF.PROT.DERIV. 5 TU/0.1 ML TEST ID ONE ×2 (09:00→16:30)
[2017-10-13 09:05] LABS: BASOPHILS % (AUTO) 0.2 % (0.0-2.0); EOSINOPHILS # (AUTO) 0.1 K/uL (0.0-0.7); EOSINOPHILS % (AUTO) 0.3 % (0.0-7.0); HEMATOCRIT 39.6 % (36.7-47.1); HEMOGLOBIN 13.4 g/dL (12.5-16.3); LYMPHOCYTES # (AUTO) 2.7 K/uL (20.0-40.0); LYMPHOCYTES % (AUTO) 15.2 % (20.5-51.5); MEAN CORPUSCULAR HGB CONC 34 g/dL (32.5-36.3); MEAN CORPUSCULAR VOLUME 97.3 fL (73.0-96.2); MONOCYTES # (AUTO) 1.6 K/uL (2.0-10.0); MONOCYTES % (AUTO) 8.7 % (0.0-11.0); NEUTROPHILS # (AUTO) 13.6 K/uL (1.8-8.9); NEUTROPHILS % (AUTO) 75.6 % (38.5-71.5); PLATELET COUNT (AUTO) 508 K/uL (152-348); RED BLOOD CELL COUNT(AUTO) 4.07 MIL/uL (4.06-5.63)
[2017-10-13 09:31] LABS: BILIRUBIN,DIRECT 0.3 mg/dL (0.0-0.2); BILIRUBIN,TOTAL 1.2 mg/dL (0.2-1.0); CREATININE 0.8 mg/dL (0.6-1.3); MAGNESIUM 1.9 mg/dL (1.8-2.4); POTASSIUM 3.7 mmol/L (3.5-5.1); TOTAL PROTEIN, SERUM 5.5 g/dL (6.4-8.2)
[2017-10-13] MEDS ORDERED: QUETIAPINE FUMARATE 25 MG TABLET PO PRN (11:15)
[2017-10-13 12:00] VITALS: BP 135/80
[2017-10-13 16:00] VITALS: BP 128/78
[2017-10-13] MEDS ORDERED: LORAZEPAM 1 MG TABLET PO PRN ×2 (19:30)
[2017-10-13 20:11] VITALS: BP 104/69
[2017-10-14 00:12] VITALS: BP 122/73
[2017-10-14 04:50] VITALS: BP 108/68
[2017-10-14 08:00] VITALS: BP 115/77
[2017-10-14] MEDS: PANTOPRAZOLE SODIUM 40 MG TABLET.DR PO SCH (08:46)
[2017-10-14] MEDS: GABAPENTIN 300 MG CAPSULE PO SCH ×2 (08:46→21:55)
[2017-10-14] MEDS: LEVOFLOXACIN 750 MG TABLET PO SCH (08:46)
[2017-10-14] MEDS: LORAZEPAM 1 MG TABLET PO SCH ×3 (08:46→21:55)
[2017-10-14] MEDS: predniSONE 20 MG TABLET PO SCH (08:46)
[2017-10-14] MEDS: BUPRENORPHINE HCL 2 MG TAB.SUBL SL SCH ×3 (08:49→21:55)
[2017-10-14 09:16] LABS: BASOPHILS % (AUTO) 0.1 % (0.0-2.0); EOSINOPHILS # (AUTO) 0.1 K/uL (0.0-0.7); EOSINOPHILS % (AUTO) 0.4 % (0.0-7.0); HEMATOCRIT 36.6 % (36.7-47.1); HEMOGLOBIN 12.7 g/dL (12.5-16.3); LYMPHOCYTES # (AUTO) 2.1 K/uL (20.0-40.0); LYMPHOCYTES % (AUTO) 11.6 % (20.5-51.5); MEAN CORPUSCULAR HEMOGLOBIN 33.9 uug (23.8-33.4); MEAN CORPUSCULAR HGB CONC 35 g/dL (32.5-36.3); MONOCYTES # (AUTO) 1.4 K/uL (2.0-10.0); MONOCYTES % (AUTO) 7.9 % (0.0-11.0); NEUTROPHILS # (AUTO) 14.3 K/uL (1.8-8.9); PLATELET COUNT (AUTO) 475 K/uL (152-348); RED BLOOD CELL COUNT(AUTO) 3.74 MIL/uL (4.06-5.63); WHITE BLOOD COUNT (AUTO) 17.9 K/uL (3.6-10.2)
[2017-10-14 10:10] LABS: BILIRUBIN,DIRECT 0.2 mg/dL (0.0-0.2); BILIRUBIN,TOTAL 0.9 mg/dL (0.2-1.0); MAGNESIUM 1.9 mg/dL (1.8-2.4); PHOSPHOROUS 3.5 mg/dL (2.5-4.9); POTASSIUM 3.3 mmol/L (3.5-5.1); TOTAL PROTEIN, SERUM 4.9 g/dL (6.4-8.2)
[2017-10-14 12:00] VITALS: BP 79/48
[2017-10-14 13:07] LABS: HEPATITIS B SURFACE AG Negative (Negative)
[2017-10-14 16:00] VITALS: BP 106/62
[2017-10-14] MEDS: ONDANSETRON ODT 4 MG TAB.RAPDIS SL PRN ×2 (17:04→22:03)
[2017-10-14] MEDS: NICOTINE 14 MG/24HR PATCH TD PRN (17:13)
[2017-10-14 20:00] VITALS: BP 84/50
[2017-10-14] MEDS ORDERED: POTASSIUM CHLORIDE 20 MEQ TAB.PRT.SR PO ONE (21:00)
[2017-10-14] MEDS: LACTULOSE 20 G/30 ML LIQUID UDC PO SCH (21:54)
[2017-10-15] MEDS: PANTOPRAZOLE SODIUM 40 MG TABLET.DR PO SCH (06:51)
[2017-10-15 08:00] VITALS: BP 92/60
[2017-10-15] MEDS ORDERED: predniSONE 20 MG TABLET PO SCH (08:00)
[2017-10-15] MEDS: BUPRENORPHINE HCL 2 MG TAB.SUBL SL SCH ×2 (08:12→20:46)
[2017-10-15] MEDS: predniSONE 20 MG TABLET PO SCH (08:12)
[2017-10-15] MEDS: LEVOFLOXACIN 750 MG TABLET PO SCH (08:12)
[2017-10-15] MEDS: GABAPENTIN 300 MG CAPSULE PO SCH ×2 (08:12→20:45)
[2017-10-15] MEDS: LORAZEPAM 1 MG TABLET PO SCH ×2 (08:12→20:45)
[2017-10-15] MEDS: LACTULOSE 20 G/30 ML LIQUID UDC PO SCH ×2 (08:12→20:46)
[2017-10-15 09:53] LABS: BASOPHILS % (AUTO) 0.2 % (0.0-2.0); EOSINOPHILS # (AUTO) 0.2 K/uL (0.0-0.7); EOSINOPHILS % (AUTO) 0.8 % (0.0-7.0); HEMATOCRIT 37.3 % (36.7-47.1); HEMOGLOBIN 12.7 g/dL (12.5-16.3); LYMPHOCYTES # (AUTO) 1.6 K/uL (20.0-40.0); LYMPHOCYTES % (AUTO) 8.1 % (20.5-51.5); MEAN CORPUSCULAR HEMOGLOBIN 33.5 uug (23.8-33.4); MEAN CORPUSCULAR HGB CONC 34 g/dL (32.5-36.3); MEAN CORPUSCULAR VOLUME 97.9 fL (73.0-96.2); MONOCYTES # (AUTO) 1.6 K/uL (2.0-10.0); MONOCYTES % (AUTO) 8.1 % (0.0-11.0); NEUTROPHILS # (AUTO) 16.3 K/uL (1.8-8.9); NEUTROPHILS % (AUTO) 82.8 % (38.5-71.5); PLATELET COUNT (AUTO) 468 K/uL (152-348); WHITE BLOOD COUNT (AUTO) 19.7 K/uL (3.6-10.2)
[2017-10-15 10:17] LABS: MAGNESIUM 1.7 mg/dL (1.8-2.4); PHOSPHOROUS 2.7 mg/dL (2.5-4.9); POTASSIUM 3.9 mmol/L (3.5-5.1)
[2017-10-15 11:38] LABS: LYMPHOCYTES % (MANUAL) 9 % (20-40); NEUTROPHILS % (MANUAL) 89 % (42-75)
[2017-10-15 11:39] LABS: MONOCYTES % (MANUAL) 2 % (2-10)
[2017-10-15 12:00] VITALS: BP 101/65
[2017-10-15] MEDS ORDERED: MAGNESIUM OXIDE 400 MG TABLET PO ONE (15:00)
[2017-10-15 16:00] VITALS: BP 107/65
[2017-10-15 20:00] VITALS: BP 98/70
[2017-10-15] MEDS: DICYCLOMINE HCL 20 MG TABLET PO PRN (20:45)
[2017-10-16] MEDS: PANTOPRAZOLE SODIUM 40 MG TABLET.DR PO SCH (06:44)
[2017-10-16 08:00] VITALS: BP 108/64
[2017-10-16] MEDS ORDERED: LORAZEPAM 1 MG TABLET PO SCH (09:00)
[2017-10-16] MEDS ORDERED: BUPRENORPHINE HCL 2 MG TAB.SUBL SL SCH (09:00)
[2017-10-16] MEDS: GABAPENTIN 300 MG CAPSULE PO SCH ×2 (09:11→22:22)
[2017-10-16] MEDS: NICOTINE 14 MG/24HR PATCH TD PRN (09:11)
[2017-10-16] MEDS: LACTULOSE 20 G/30 ML LIQUID UDC PO SCH ×2 (09:11→22:22)
[2017-10-16] MEDS: LEVOFLOXACIN 750 MG TABLET PO SCH (09:11)
[2017-10-16] MEDS: predniSONE 10 MG TABLET PO SCH (09:13)
[2017-10-16 11:25] LABS: EOSINOPHILS # (AUTO) 0.2 K/uL (0.0-0.7); MEAN CORPUSCULAR HEMOGLOBIN 33.5 uug (23.8-33.4); MEAN CORPUSCULAR HGB CONC 33 g/dL (32.5-36.3); NEUTROPHILS # (AUTO) 17.5 K/uL (1.8-8.9)
[2017-10-16 11:39] LABS: BASOPHILS % (AUTO) 0.1 % (0.0-2.0); EOSINOPHILS % (AUTO) 0.7 % (0.0-7.0); LYMPHOCYTES # (AUTO) 1.9 K/uL (20.0-40.0); LYMPHOCYTES % (AUTO) 8.9 % (20.5-51.5); MEAN CORPUSCULAR VOLUME 100.2 fL (73.0-96.2); MONOCYTES % (AUTO) 9.3 % (0.0-11.0); PLATELET COUNT (AUTO) 504 K/uL (152-348); RED BLOOD CELL COUNT(AUTO) 4.17 MIL/uL (4.06-5.63); WHITE BLOOD COUNT (AUTO) 21.6 K/uL (3.6-10.2)
[2017-10-16 11:42] LABS: HEMATOCRIT 41.8 % (36.7-47.1)
[2017-10-16 12:00] VITALS: BP 100/60
[2017-10-16 12:55] LABS: CREATININE 0.9 mg/dL (0.6-1.3); MAGNESIUM 1.8 mg/dL (1.8-2.4); PHOSPHOROUS 2.1 mg/dL (2.5-4.9); POTASSIUM 4.1 mmol/L (3.5-5.1)
[2017-10-16] MEDS ORDERED: MAGNESIUM OXIDE 400 MG TABLET PO ONE (13:00)
[2017-10-16] MEDS ORDERED: NEUTRA PHOS PACKET PO ONE (13:00)
[2017-10-16] MEDS: DICYCLOMINE HCL 20 MG TABLET PO SCH ×2 (14:26→22:22)
[2017-10-16 17:00] VITALS: BP 105/70
[2017-10-16 20:00] VITALS: BP 118/80
[2017-10-16] MEDS ORDERED: LACT10SO7 PO (20:34)
[2017-10-16] MEDS ORDERED: GABA-534 PO (20:34)
[2017-10-16] MEDS ORDERED: IBUP-1955 PO (20:34)
[2017-10-16] MEDS ORDERED: DIPH50CA37 PO (20:34)
[2017-10-16] MEDS ORDERED: LACT1CAP57 PO (20:34)
[2017-10-16] MEDS ORDERED: DICY20TA28 PO (20:34)
[2017-10-16] MEDS ORDERED: METH-406 PO (20:34)
[2017-10-16] MEDS ORDERED: PANT40TA2 PO (20:34)
[2017-10-16] MEDS ORDERED: LEVO750T21 PO (20:34)
[2017-10-16] MEDS: LACTOBACILLUS RHAMNOSUS GG 1 EACH CAPSULE PO SCH (22:22)
[2017-10-17] VITALS: BP 107/75
[2017-10-17 04:00] VITALS: BP 115/77
[2017-10-17] MEDS: PANTOPRAZOLE SODIUM 40 MG TABLET.DR PO SCH (07:27)
[2017-10-17 08:00] VITALS: BP 103/79
[2017-10-17] MEDS: LACTULOSE 20 G/30 ML LIQUID UDC PO SCH (08:16)
[2017-10-17] MEDS: LACTOBACILLUS RHAMNOSUS GG 1 EACH CAPSULE PO SCH (08:16)
[2017-10-17] MEDS: DICYCLOMINE HCL 20 MG TABLET PO SCH (08:16)
[2017-10-17] MEDS: LEVOFLOXACIN 750 MG TABLET PO SCH (08:16)
[2017-10-17] MEDS: predniSONE 10 MG TABLET PO SCH (08:16)
[2017-10-17] MEDS: GABAPENTIN 300 MG CAPSULE PO SCH (08:16)
[2017-10-17] MEDS: NICOTINE 14 MG/24HR PATCH TD PRN (08:21)
[2017-10-17] MEDS ORDERED: predniSONE 10 MG TABLET PO SCH (09:00)
[2017-10-17 12:00] VITALS: BP 103/74
[2017-10-18] MEDS ORDERED: predniSONE 10 MG TABLET PO SCH (09:00)
== END 2017-10-17 14:30 | DRG 895 ==
LOC: SRC 13:29
PROVIDERS: ADMIT Internal Medicine; ATTEND Internal Medicine
PROC: HZ2ZZZZ Detoxification Services for Substance Abuse Treatment (ICD-10-PCS; principal; 2017-10-12)
PROC: HZ31ZZZ Individual Counseling for Substance Abuse Treatment, Behavioral (ICD-10-PCS; 2017-10-15)
DX: F11.23 Opioid dependence with withdrawal (principal); J18.9 Pneumonia, unspecified organism; E72.20 Disorder of urea cycle metabolism, unspecified; K70.40 Alcoholic hepatic failure without coma; J84.112 Idiopathic pulmonary fibrosis; E86.0 Dehydration; J44.0 Chronic obstructive pulmonary disease with (acute) lower respiratory infection; F23 Brief psychotic disorder; F13.230 Sedative, hypnotic or anxiolytic dependence with withdrawal, uncomplicated; F10.20 Alcohol dependence, uncomplicated; E83.39 Other disorders of phosphorus metabolism; E83.42 Hypomagnesemia; Y90.9 Presence of alcohol in blood, level not specified; R41.0 Disorientation, unspecified; T38.0X5A Adverse effect of glucocorticoids and synthetic analogues, initial encounter; Y92.239 Unspecified place in hospital as the place of occurrence of the external cause; K21.9 Gastro-esophageal reflux disease without esophagitis; Z82.5 Family history of asthma and other chronic lower respiratory diseases; R09.02 Hypoxemia; G40.909 Epilepsy, unspecified, not intractable, without status epilepticus; D72.823 Leukemoid reaction; E87.6 Hypokalemia; F17.210 Nicotine dependence, cigarettes, uncomplicated; G89.29 Other chronic pain; E05.90 Thyrotoxicosis, unspecified without thyrotoxic crisis or storm
CPT/HCPCS: 36415; 71045; 80307; 80361; 83605; 83735; 84100; 84443; 85025; 86592; 86705; 86803; 87040; 87340; 87400; 87806; A4663; G0480; J2358; J7512; Q0162; Q0163